=== PATIENT | male | born 1965 | race African-American/Black ===

== ENCOUNTER 2018-07-19 14:11 | Inpatient (IN) | payer OTHER ==
[2018-07-19 16:20] LABS: Absolute Lymphocytes (CBC) 2.1 K/uL (0.7-4.9); Basophils % 0.7 % (0-1.3); Eosinophils % 0.7 % (0-4.4); Hematocrit 39.1 % (39.6-49.0); Lymphocytes % 20.7 % (15.3-44.8); MPV 7.7 fL (7.6-11.3); Monocytes % 9.4 % (3.3-12.3)
[2018-07-19 16:25] LABS: Protime INR 1.03
[2018-07-19] MEDS ORDERED: MORPHINE 4 MG/ML SYR ONE ×2 (16:25→18:18)
[2018-07-19] MEDS ORDERED: ONDANSETRON 4 MG/2 ML VIAL ONE ×2 (16:25→18:18)
--- NOTE | 2018-07-19 16:34 | RAD REPORT ---
EXAM DESCRIPTION: RAD - Chest Single View - 07/19/2018 4:29 pm CLINICAL HISTORY: Shortness of breath, preop chest wound treatment COMPARISON: None. TECHNIQUE: AP portable chest image was obtained 1616 hours . FINDINGS: Lungs are clear. Heart and vasculature are normal. No measurable pleural effusion and no p neumothorax. No acute bony abnormality seen. No acute aortic findings suspected. IMPRESSION: No acute cardiopulmonary process.
[2018-07-19] MEDS ORDERED: NA CHLORIDE 0.9% 1,000 ML ONE (16:41)
--- NOTE | 2018-07-19 16:45 | RAD REPORT ---
EXAM DESCRIPTION: RAD - Foot Right 3 View - 07/19/2018 4:29 pm CLINICAL HISTORY: Foot pain, pressure ulcer, foot wound COMPARISON: None. FINDINGS: Extensive degenerative and postsurgical changes are present throughout the foot. Right fir st toe and distal first metatarsal have been resected along with the fourth and fifth toes and most o f the fourth and fifth metatarsals. The middle and distal phalanges of the second and third toes have also been resected. There is degenerative change in subluxation at the second and third MTP joints. Midfoot degenerative changes are present. Flattened plantar arch is seen. Significant degenerative ch geo at the tibiotalar joint space. Soft tissue edema is present. No air or foreign body in the soft tissues. No active bone destructive process seen. Osteomyelitis can be present prior to bone destruction. IMPRESSION: Patient has extensive degenerative and postsurgical changes to the foot. No active bone destructive process identifiable. Osteomyelitis can exist prior to radiographic bone destruction. Soft tissue edema is present with the baseline for the patient unknown. No air or foreign body.
[2018-07-19 17:02] LABS: ALT/SGPT 24 U/L (12-78); AST/SGOT 11 U/L (15-37); Albumin 2.6 g/dL (3.4-5.0); Alkaline Phosphatase 90 U/L (45-117); BUN Blood Urea Nitrogen 14 mg/dL (7-18); Bicarbonate 25 mmol/L (21-32); Bilirubin Direct < 0.1 mg/dL (0-0.2); Bilirubin Total 0.2 mg/dL (0.2-1.0); Creatine Phosphokinase 128 U/L (39-308); Glucose Level 236 mg/dL (74-106); Potassium 3.7 mmol/L (3.5-5.1); Protein, Total 7.7 g/dL (6.4-8.2); Sodium Level 138 mmol/L (136-145)
--- NOTE | 2018-07-19 17:30 | RAD REPORT ---
EXAM DESCRIPTION: US - Extremity Venous Uni Ltd - 07/19/2018 4:59 pm CLINICAL HISTORY: Right leg pain and swelling COMPARISON: None. TECHNIQUE: Real-time sonographic evaluation of the right lower extremity deep venous systems was per formed. FINDINGS: Normal compressibility, flow augmentation, phasic flow and spontaneous flow are identified in the right lower extremity common femoral, superficial femoral, popliteal and posterior tibial vei ns. No intraluminal filling defects seen. IMPRESSION: No DVT in the right lower extremity.
--- NOTE | 2018-07-19 18:09 | RAD REPORT ---
EXAM DESCRIPTION: CT - Spine Lumbar Wo Con - 07/19/2018 5:56 pm CLINICAL HISTORY: Back pain, radiculopathy COMPARISON: None. TECHNIQUE: Thin section axial imaging of the lumbar spine was performed. Sagittal and coronal recon struction images were generated and reviewed. All CT scans are performed using dose optimization technique as appropriate and may include automated exposure control or mA/KV adjustment according to patient size. FINDINGS: No acute compression fracture identifiable. Right lateral tilt of the lumbar spine may be positioning artifact. No AP alignment abnormality. Subcortical degenerative cystic changes are presen t abutting the endplates at L4-5. This is not seen as aggressive or pathologic in etiology. No pathol ogic bone process seen. No paraspinal soft tissue mass. T11-12: No herniation or disc bulge. No canal or significant foraminal encroachment. Facet and endpla te degenerative spurring present. T12-L1: No herniation or significant disc bulge. Facet degenerative change and endplate spurring. No canal or foramen stenosis. L1-2: No herniation or significant disc bulge. No canal or foramen significant stenosis. Facet and en dplate degenerative changes present. L2-3: Loss in disc height with degenerative disc disease evident. Bulging disc material is present mo re prominent into the right exit foramen where there is significant right foraminal stenosis. Central canal is borderline stenotic. Prominent facet degenerative changes are present. Prominent endplate s purring changes are present. L3-4: Disc bulge without herniation. Mild right foraminal stenosis. Facet degenerative change and end plate spurring noted. L4-5: Loss in disc height with very advanced degenerative change to the endplates. Bulging of disc ma terial across the central canal and into each exit foramen noted. No central spinal stenosis. Mild bi lateral foraminal stenosis seen. L5-S1 level. No herniation, disc bulge, canal stenosis or foraminal encroachment. Facet degenerative changes are present. No pars defects seen. IMPRESSION: Degenerative changes are present in the lumbar spine as detailed. Findings are most pron ounced at L4-5. No fracture or acute bone findings seen. Central spinal stenosis is not identified. Central canal detail is inherently limited. Canal is borde rline stenotic at L2-3.
--- NOTE | 2018-07-19 19:08 | ER ---
Nurse's Notes [facility] Name: Zoltan Alegre Jr Age: 53 yrs Sex: Male : 1965 Arrival Date: 07/19/2018 Time: 14:14 Bed 20 Private MD: Diagnosis: Cellulitis of right lower limb-Foot;Low back pain Presentation: 07/19 14:21 Presenting complaint: Patient states: my R leg is swollen and i have a wound on my R hj foot; wearing L leg prosthetic; denies fever and chills; denies SOB:. Transition of care: patient was not received from another setting of care. Onset of symptoms was July 19, 2018. Risk Assessment: Do you want to hurt yourself or someone else? Patient reports no desire to harm self or others. Initial Sepsis Screen: Does the patient meet any 2 criteria? No. Patient's initial sepsis screen is negative. Does the patient have a suspected source of infection? No. Patient's initial sepsis screen is negative. Care prior to arrival: None. 14:21 Method Of Arrival: Wheelchair 14:21 Acuity: MANISH 3 hj Triage Assessment: 14:27 General: Appears in no apparent distress. uncomfortable, Behavior is calm, cooperative, hj appropriate for age. Pain: Complains of pain in back and right leg. Musculoskeletal: Amputation of left leg. Historical: - Allergies: 14:26 No Known Allergies; hj - Home Meds: 14:26 glimeperide-metformin 2.5- 500 mg 3 x a day [Active]; gabapentin 300 mg oral cap 1 cap hj twice a day [Active]; pioglitazone 15 mg oral tab 1 tab once daily [Active]; ezetimibe oral oral 1 tab once daily [Active]; Plavix 75 mg Oral tab 1 tab once daily [Active]; atorvastatin 20 mg oral tab 1 tab once daily [Active]; tramadol 100 mg Oral BP25 1 cap once daily [Active]; Novolin N 100 unit/mL Sub-Q susp [Active]; Nifedipine Oral [Active]; Benicar oral oral [Active]; - PMHx: 14:26 Hyperlipidemia; Hypertension; Diabetes - NIDDM; hj - PSHx: 14:26 L leg amputation; hj - Immunization history:: Adult Immunizations up to date. - Social history:: Smoking status: Patient uses tobacco products, Patient uses alcohol. - Ebola Screening: : Patient negative for fever greater than or equal to 101.5 degrees Fahrenheit, and additional compatible Ebola Virus Disease symptoms Patient denies exposure to infectious person Patient denies travel to an Ebola-affected area in the 21 days before illness onset. Screenin:27 Abuse screen: Denies threats or abuse. Denies injuries from another. Nutritional hj screening: No deficits noted. Tuberculosis screening: No symptoms or risk factors identified. Fall Risk None identified. Assessment: 16:00 General: Appears in no apparent distress. comfortable, Behavior is calm, cooperative, em Reports feeling ill for 1-2 days, Denies fever. Pain: Complains of pain in back Pain radiates to right leg Pain currently is 6 out of 10 on a pain scale. Neuro: Level of Consciousness is awake, alert, obeys commands, Oriented to person, place, time, situation. Cardiovascular: Heart tones S1 S2 present Capillary refill < 3 seconds Patient's skin is warm and dry. Pulses are palpable in right dorsalis pedis artery. Respiratory: Airway is patent Respiratory effort is even, unlabored, Respiratory pattern is regular, symmetrical. GI: Abdomen is flat. Derm: Skin is pink, warm \T\ dry. Wound noted ball of right foot. Musculoskeletal: Amputation of left mcallister, anterior aspect of left ankle and dorsum of left foot. Range of motion: intact in all extremities, Swelling present in right leg. 17:10 Reassessment: Patient appears in no apparent distress at this time. Patient and/or em family updated on plan of care and expected duration. Pain level reassessed. Patient is alert, oriented x 3, equal unlabored respirations, skin warm/dry/pink. rates pain 4/10 Patient states feeling better. 18:00 Reassessment: pt reports pain after moving during CT, provider notified, new medication em orders received. 19:15 Reassessment: Patient appears in no apparent distress at this time. Patient and/or cc3 family updated on plan of care and expected duration. Pain level reassessed. Patient is alert, oriented x 3, equal unlabored respirations, skin warm/dry/pink. Received this male patient from morning shift [facility] as a case of back pain and foot ulcer for admission awaiting bed availability. With IV cannula gauge 20 at the right forearm saline locked. 20:30 Reassessment: Patient appears in no apparent distress at this time. Patient and/or cc3 family updated on plan of care and expected duration. Pain level reassessed. Patient is alert, oriented x 3, equal unlabored respirations, skin warm/dry/pink. Room available in 208, called med-surg for report but was told that they will call back. 20:50 Reassessment: Report called and handed over to RN Tyesha Vidal for continuity of cc3 care and management. 21:20 Reassessment: Patient appears in no apparent distress at this time. Patient and/or cc3 family updated on plan of care and expected duration. Pain level reassessed. Patient is alert, oriented x 3, equal unlabored respirations, skin warm/dry/pink. Patient left ER for admission vitally stable by stretcher escorted by [facility]. Vital Signs: 14:27 BP 161 / 90; Pulse 113; Resp 18; Temp 98.4(TE); Pulse Ox 98% on R/A; Weight 113.4 kg; hj Height 6 ft. 5 in. (195.58 cm); Pain 8/10; 16:00 BP 135 / 80; Pulse 106; Resp 20; Pulse Ox 100% on R/A; Pain 8/10; em 18:00 BP 155 / 94; Pulse 94; Resp 18; Pulse Ox 99% on R/A; Pain 8/10; em 19:15 BP 146 / 88; Pulse 89; Resp 19 S; Pulse Ox 99% on R/A; cc3 20:21 BP 159 / 86; Pulse 93; Resp 18 S; Pulse Ox 99% on R/A; cc3 21:00 BP 149 / 87; Pulse 91; Resp 20 S; Pulse Ox 99% on R/A; cc3 14:27 Body Mass Index 29.65 (113.40 kg, 195.58 cm) ED Course: 14:14 Patient arrived in ED. as 14:22 Triage completed. hj 14:27 Arm band placed on right wrist. hj 14:27 Patient has correct armband on for positive identification. Placed in gown. Bed in low hj position. Call light in reach. Side rails up X 1. 15:24 Cody Kendrick LVN is Primary Nurse. em 15:24 Karl Shelby PA is PHCP. cp 15:24 Gage Campbell MD is Attending Physician. cp 16:00 Initial lab(s) drawn, by nv, sent to lab. Inserted saline lock: 20 gauge in right em forearm, using aseptic technique. Blood collected. 16:29 Chest Single View XRAY In Process Unspecified. EDMS 16:29 XRAY Foot RIGHT 3 View In Process Unspecified. EDMS 16:32 EKG done, by emergency spill response technician. reviewed by Karl KYLE. sm3 16:59 US Extremity Venous Unilateral Ltd In Process Unspecified. EDMS 17:56 CT Lumbar Spine Wo Con: pain In Process Unspecified. EDMS 18:30 Dressings: Kerlix X 1; right foot. em 19:06 Guevara Cason DO is Hospitalizing Provider. cp 20:27 Primary Nurse role handed off by Cody Kendrick LVN ed1 20:50 No provider procedures requiring assistance completed. Patient admitted, IV remains in cc3 place. Administered Medications: 16:20 Drug: morphine 4 mg Route: IVP; Site: right forearm; hb 17:10 Follow up: Response: No adverse reaction; Pain is decreased em 16:20 Drug: Zofran 4 mg Route: IVP; Site: right forearm; hb 17:10 Follow up: Response: No adverse reaction em 16:34 Drug: NS 0.9% 1000 ml Route: IV; Rate: 1 bolus; Site: right forearm; em 18:13 Follow up: IV Status: Completed infusion; IV Intake: 1000ml em 18:15 Drug: Zofran 4 mg Route: IVP; Site: right forearm; em 19:15 Follow up: Response: No adverse reaction; Nausea is decreased cc3 18:15 Drug: morphine 4 mg Route: IVP; Site: right forearm; em 19:15 Follow up: Response: No adverse reaction; Pain is decreased cc3 19:15 Drug: vancoMYCIN 1 grams Route: IVPB; Infused Over: 2 hrs; Site: right forearm; cc3 21:15 Follow up: Response: No adverse reaction; IV Status: Completed infusion; IV Intake: cc3 250ml Intake: 18:13 IV: 1000ml; Total: 1000ml. em 21:15 IV: 250ml; Total: 1250ml. cc3 Outcome: 19:07 Decision to Hospitalize by Provider. cp 20:50 Admitted to Med/surg accompanied by sherry via stretcher, room 208, with chart, Report cc3 called to Tyesha Vidal RN 20:50 Condition: stable 20:50 Instructed on the need for admit, Demonstrated understanding of instructions. 21:23 Patient left the ED. cc3 Signatures: Dispatcher [employer] EDMS Cody Kendrick, WINDOW GLAZIER WINDOW GLAZIER Manisha Han Erika, RN RN ed1 Cholo Heaton RN RN hj Karl Shelby PA PA cp Baxter, Heather, ASHLEE RN Ofelia Minor sm3 Perlita Mejia cc3 Corrections: (The following items were deleted from the chart) 14:29 14:27 Pulse 113bpm; Resp 18bpm; Pulse Ox 98% RA; Temp 98.4F Temporal; 113.4 kg; Height hj 6 ft. 5 in.; BMI: 29.6; Pain 8/10; hj
--- NOTE | 2018-07-19 19:08 | EDPHYS ---
Physician Documentation [facility] Name: Zoltan Alegre Jr Age: 53 yrs Sex: Male : 1965 Arrival Date: 07/19/2018 Time: 14:14 Bed 20 Private MD: ED Physician Gage Campbell HPI: 07/19 15:50 This 53 yrs old Black Male presents to ER via Wheelchair with complaints of Back Pain, cp Foot Pain - Ulcer. 15:50 The patient presents with pressure ulcer. The complaints affect the ball of right foot. cp 15:50 Onset: The symptoms/episode began/occurred gradually. Associated signs and symptoms: cp Pertinent positives: swelling, of the right leg, Pertinent negatives fever. The patient presents with pain that is acute, with no known mechanism of injury. The symptoms are located in the low back. The pain does not radiate. Associated signs and symptoms: Pertinent negatives: abdominal pain, chest pain, constipation, dysuria, fever, incontinence, urinary retention, weakness. The problem was sustained from unknown cause. Severity of symptoms: in the emergency department the symptoms are unchanged, despite home interventions. Patient reports he was referred to ED by DR Field for pressure ulcer wound of right foot. Historical: - Allergies: 14:26 No Known Allergies; hj - Home Meds: 14:26 glimeperide-metformin 2.5- 500 mg 3 x a day [Active]; gabapentin 300 mg oral cap 1 cap hj twice a day [Active]; pioglitazone 15 mg oral tab 1 tab once daily [Active]; ezetimibe oral oral 1 tab once daily [Active]; Plavix 75 mg Oral tab 1 tab once daily [Active]; atorvastatin 20 mg oral tab 1 tab once daily [Active]; tramadol 100 mg Oral BP25 1 cap once daily [Active]; Novolin N 100 unit/mL Sub-Q susp [Active]; Nifedipine Oral [Active]; Benicar oral oral [Active]; - PMHx: 14:26 Hyperlipidemia; Hypertension; Diabetes - NIDDM; hj - PSHx: 14:26 L leg amputation; hj - Immunization history:: Adult Immunizations up to date. - Social history:: Smoking status: Patient uses tobacco products, Patient uses alcohol. - Ebola Screening: : Patient negative for fever greater than or equal to 101.5 degrees Fahrenheit, and additional compatible Ebola Virus Disease symptoms Patient denies exposure to infectious person Patient denies travel to an Ebola-affected area in the 21 days before illness onset. ROS: 16:00 Constitutional: Negative for fever. cp 16:00 All other systems are negative. cp Exam: 16:10 Constitutional: The patient appears in no acute distress, alert, awake, cp non-diaphoretic, non-toxic, well developed, well nourished. 16:10 Head/Face: Normocephalic, atraumatic. Eyes: Pupils equal round and reactive to light, cp extra-ocular motions intact. Lids and lashes normal. Conjunctiva and sclera are non-icteric and not injected. Cornea within normal limits. Periorbital areas with no swelling, redness, or edema. ENT: Nares patent. No nasal discharge, no septal abnormalities noted. Tympanic membranes are normal and external auditory canals are clear. Oropharynx with no redness, swelling, or masses, exudates, or evidence of obstruction, uvula midline. Mucous membranes moist. Neck: Trachea midline, no thyromegaly or masses palpated, and no cervical lymphadenopathy. Supple, full range of motion without nuchal rigidity, or vertebral point tenderness. No Meningismus. Chest/axilla: Normal chest wall appearance and motion. Nontender with no deformity. No lesions are appreciated. 16:10 Cardiovascular: Rate: tachycardic, Rhythm: regular, Pulses: Pulses are 1+ in right dorsalis pedis artery. Edema: moderate noted to right lower leg and foot, JVD: is not appreciated. 16:10 Respiratory: the patient does not display signs of respiratory distress, Respirations: normal, no use of accessory muscles, no retractions, no splinting, no tachypnea, labored breathing, is not present, Breath sounds: are clear throughout, no decreased breath sounds, no stridor, no wheezing. 16:10 Abdomen/GI: Inspection: abdomen appears normal, Palpation: abdomen is soft and non-tender, in all quadrants. 16:10 Back: pain, that is moderate, of the lumbar area, ROM is painful, with all movement, CVA tenderness, is absent, vertebral tenderness, is appreciated at L3, L4 and L5. 16:10 Musculoskeletal/extremity: Extremities: grossly normal except: noted in the right foot: deformity, pressure ulcer on plantar surface with erythema and swelling, scant drainage noted, left BKA. 16:10 Skin: right groin enlarged lymph node. 16:10 Neuro: Orientation: to person, place \T\ time. Mentation: is normal, Cerebellar function: is grossly normal, Motor: is normal, Sensation: light touch is decreased in the right foot. 16:35 ECG was reviewed by the Attending Physician. Vital Signs: 14:27 BP 161 / 90; Pulse 113; Resp 18; Temp 98.4(TE); Pulse Ox 98% on R/A; Weight 113.4 kg; hj Height 6 ft. 5 in. (195.58 cm); Pain 8/10; 16:00 BP 135 / 80; Pulse 106; Resp 20; Pulse Ox 100% on R/A; Pain 8/10; em 18:00 BP 155 / 94; Pulse 94; Resp 18; Pulse Ox 99% on R/A; Pain 8/10; em 19:15 BP 146 / 88; Pulse 89; Resp 19 S; Pulse Ox 99% on R/A; cc3 20:21 BP 159 / 86; Pulse 93; Resp 18 S; Pulse Ox 99% on R/A; cc3 21:00 BP 149 / 87; Pulse 91; Resp 20 S; Pulse Ox 99% on R/A; cc3 14:27 Body Mass Index 29.65 (113.40 kg, 195.58 cm) hj MDM: 15:27 Patient medically screened. cp 18:31 Physician consultation: Guevara Cason DO was called at 18:31, was contacted at 18:31, regarding consult, patient's condition, and will see patient in ED, shortly. 19:05 Physician consultation: Guevara Cason DO in the emergency department to see patient at cp 18:40, will admit for IV antibiotics. 07/19 15:55 Order name: C-Reactive Protein; Complete Time: 17:17 07/19 17:17 Interpretation: Abnormal: C-REACTIVE PROT 24.90. 07/19 15:55 Order name: Sed Rate; Complete Time: 17:17 cp 07/19 17:17 Interpretation: Abnormal: SED 76. cp 07/19 15:55 Order name: Wound Culture cp 07/19 15:55 Order name: Urine Culture cp 07/19 15:55 Order name: Urine Microscopic Only cp 04/05 15:55 Order name: Basic Metabolic Panel; Complete Time: 17:17 cp 04/05 18:29 Interpretation: Normal except: GLUC 236. cp 04/05 15:55 Order name: Blood Culture Adult (2) cp 04/05 15:55 Order name: CBC with Diff; Complete Time: 17:17 cp 04/05 17:17 Interpretation: Normal except: RBC 4.30; HGB 13.2; HCT 39.1. cp 04/05 15:55 Order name: CPK; Complete Time: 17:17 cp 04/05 15:55 Order name: Lactate; Complete Time: 17:17 cp 04/05 15:55 Order name: LFT's; Complete Time: 17:17 cp 04/ 15:55 Order name: Procalcitonin; Complete Time: 17:17 cp 04 15:55 Order name: Protime (+inr); Complete Time: 17:17 cp 04 15:55 Order name: Ptt, Activated; Complete Time: 17:17 cp 04 15:55 Order name: US Extremity Venous Unilateral Ltd; Complete Time: 18:28 cp 04 15:55 Order name: Chest Single View XRAY; Complete Time: 17:17 cp 04 15:55 Order name: Accucheck; Complete Time: 16:20 cp 0405 15:55 Order name: Cardiac monitoring; Complete Time: 16:21 cp 05 15:55 Order name: EKG - Nurse/Tech; Complete Time: 16:20 cp 0405 15:55 Order name: IV Saline Lock - Large Bore; Complete Time: 16:21 cp 0405 15:55 Order name: XRAY Foot RIGHT 3 View; Complete Time: 17:17 cp 0405 17:19 Order name: CT Lumbar Spine Wo Con: pain; Complete Time: 18:28 cp 05 17:59 Order name: EKG Electrocardiogram EDMS 07/19 19:54 Order name: Urine Dipstick--Ancillary (enter results) cm6 07/19 15:55 Order name: Labs collected and sent; Complete Time: 16:21 cp 0405 15:55 Order name: O2 Per Protocol; Complete Time: 16:21 cp 07/19 15:55 Order name: O2 Sat Monitoring; Complete Time: 16:21 cp 07/19 15:55 Order name: Urine Dipstick-Ancillary (obtain specimen); Complete Time: 20:12 cp EC:35 Rate is 103 beats/min. Rhythm is regular. ME interval is normal. QRS interval is cp normal. QT interval is normal. Interpreted by me. Reviewed by me. Administered Medications: 16:20 Drug: morphine 4 mg Route: IVP; Site: right forearm; hb 17:10 Follow up: Response: No adverse reaction; Pain is decreased em 16:20 Drug: Zofran 4 mg Route: IVP; Site: right forearm; hb 17:10 Follow up: Response: No adverse reaction em 16:34 Drug: NS 0.9% 1000 ml Route: IV; Rate: 1 bolus; Site: right forearm; em 18:13 Follow up: IV Status: Completed infusion; IV Intake: 1000ml em 18:15 Drug: Zofran 4 mg Route: IVP; Site: right forearm; em 19:15 Follow up: Response: No adverse reaction; Nausea is decreased cc3 18:15 Drug: morphine 4 mg Route: IVP; Site: right forearm; em 19:15 Follow up: Response: No adverse reaction; Pain is decreased cc3 19:15 Drug: vancoMYCIN 1 grams Route: IVPB; Infused Over: 2 hrs; Site: right forearm; cc3 21:15 Follow up: Response: No adverse reaction; IV Status: Completed infusion; IV Intake: cc3 250ml Disposition: 07/19/18 19:07 Hospitalization ordered by Guevara Cason for Inpatient Admission. Preliminary diagnosis are Cellulitis of right lower limb - Foot, Low back pain. - Bed requested for Telemetry/MedSurg (Inpatient). - Status is Inpatient Admission. cc3 - Condition is Stable. - Problem is an ongoing problem. - Symptoms have improved. UTI on Admission? No Addendum: 07/22/2018 07:26 Co-signature as Attending Physician, Gage Campbell MD I agree with the assessment and k dr plan of care. Signatures: Dispatcher [employer] Gage Perez MD MD kdr Munoz, Edgar, ANODE CREW SUPERVISOR ANODE CREW SUPERVISOR em Cholo Heaton RN RN hj Karl Shelby PA PA Lashae Friedman RN RN Sowmya Junior RN RN Perlita Mejia cc3 Corrections: (The following items were deleted from the chart) 07/19 20:25 19:07 Hospitalization Ordered by Guevara Cason DO for Inpatient Admission. Preliminary cg diagnosis is Cellulitis of right lower limb - Foot; Low back pain. Bed requested for Telemetry/MedSurg (Inpatient). Status is Inpatient Admission. Condition is Stable. Problem is an ongoing problem. Symptoms have improved. UTI on Admission? No. cp 21:23 20:25 07/19/2018 19:07 Hospitalization Ordered by Guevara Cason DO for Inpatient cc3 Admission. Preliminary diagnosis is Cellulitis of right lower limb - Foot; Low back pain. Bed requested for Telemetry/MedSurg (Inpatient). Status is Inpatient Admission. Condition is Stable. Problem is an ongoing problem. Symptoms have improved. UTI on Admission? No. cg
[2018-07-19] MEDS ORDERED: NA CHLORIDE 0.9% 250 ML ONE ×2 (19:24→23:33)
[2018-07-19] MEDS ORDERED: VANCOMYCIN 1 GM/VIAL ONE ×2 (19:24→23:31)
--- NOTE | 2018-07-19 20:23 | P.HP ---
Certification for Inpatient Patient admitted to: Inpatient With expected LOS: >2 Midnights Practitioner: I am a practitioner with admitting privileges, knowledge of patient current condition, hospital course, and medical plan of care. Services: Services provided to patient in accordance with Admission requirements found in Title 42 Section 412.3 of the Code of Federal Regulations Patient History Date of Service: 07/19/18 Reason for admission: diabetic foot ulcer infection History of Present Illness: Mr Alegre is a 53 years old male with history of DM II, HTN, dyslipidemia, tobacco abuse, left BKA, partial right foot amputation, who has 2 chronic diabetic foot ulcers on the bottom of his right foot, followed up by Dr Field every 2 weeks. However, for the last month, he was not able to see Dr Field due to transportations issues. About 1 week ago, he noticed that his both ulcers, expanded and start having yellowish secretion. His foot is significant more swollen than before. He denied pain, fever or chills. Lab work in ER shows normal WBC count with normal Lactate and procalcitonin. XR foot shows significant soft tissue swelling with no definite signs of osteomyelitis. The patient was also complaining of back pain, which is chronic. CT lumbar spine shows multiple vertebral level with DJD at different levels with borderline central canal stenosis at L2-3. Allergies No Known Allergies Allergy (Unverified 07/19/18 19:47) Home medications list reviewed: Yes - Past Medical/Surgical History -: Diabetes mellitus II -: HTN -: dyslipidemia -: left BKA - Family History Family History: Reviewed- Non-Contributory - Social History Smoking Status: Current every day smoker Counseled patient to stop smoking for: less than 10 minutes Smoking therapy provided: Yes Patient receptive to therapy: No CD- Drugs: No Place of Residence: Home Review of Systems 10-point ROS is otherwise unremarkable Physical Examination - Physical Exam General: Alert, In no apparent distress HEENT: Atraumatic, PERRLA, Mucous membr. moist/pink, EOMI, Sclerae nonicteric Neck: Supple, 2+ carotid pulse no bruit, No LAD, Without JVD or thyroid abnormality Respiratory: Clear to auscultation bilaterally, Normal air movement Cardiovascular: Regular rate/rhythm, Normal S1 S2 Gastrointestinal: Normal bowel sounds, No tenderness Musculoskeletal: No tenderness, Other (left BKA) Integumentary: Diabetic ulcer (2 open wounds on the bottom of his right foot.) Neurological: Normal speech, Normal strength at 5/5 x4 extr, Normal tone, Normal affect Lymphatics: No axilla or inguinal lymphadenopathy - Studies Laboratory Data (last 24 hrs) 07/19/18 16:00: PT 12.1, INR 1.03, APTT 47.1 H 07/19/18 16:00: WBC 10.2, Hgb 13.2 L, Hct 39.1 L, Plt Count 318 07/19/18 16:00: Sodium 138, Potassium 3.7, BUN 14, Creatinine 0.88, Glucose 236 H, Total Bilirubin 0.2, AST 11 L, ALT 24, Alkaline Phosphatase 90 Assessment and Plan - Problems (Diagnosis) (1) Diabetic foot ulcer Current Visit: Yes Status: Acute Qualifiers: Diabetic foot ulcer location: midfoot Diabetes mellitus type: type 2 Laterality: right Non-pressure ulcer stage: with necrosis of muscle Qualified Code(s): E11.621 - Type 2 diabetes mellitus with foot ulcer; L97.413 - Non-pressure chronic ulcer of right heel and midfoot with necrosis of muscle (2) Diabetes mellitus Current Visit: Yes Status: Acute Qualifiers: Diabetes mellitus type: type 2 Diabetes mellitus residential insulin use: without multigrapher use Diabetes mellitus complication status: with skin complications Diabetes mellitus complication detail: with foot ulcer Qualified Code(s): E11.621 - Type 2 diabetes mellitus with foot ulcer; L97.509 - Non-pressure chronic ulcer of other part of unspecified foot with unspecified severity (3) Dyslipidemia Current Visit: Yes Status: Acute (4) Tobacco abuse Current Visit: Yes Status: Acute (5) HTN (hypertension) Current Visit: Yes Status: Acute Qualifiers: Hypertension type: essential hypertension Qualified Code(s): I10 - Essential (primary) hypertension - Plan The patient will be admitted to the hospital due to worsening diabetic foot ulcer. No signs of systemic infection. However, due to his local worsening wound status, will start empiric antibiotic treatment. Consult Dr Field, and wound care team. Cultures in process. - Advance Directives Does patient have a Living Will: No Does patient have a Durable POA for Healthcare: No - Code Status/Comfort Care Code Status Assessed: Yes Code Status: Full Code
[2018-07-19] MEDS ORDERED: ONDANSETRON 4 MG/2 ML VIAL IV PRN (21:30)
[2018-07-19] MEDS ORDERED: ACETAMINOPHEN 500 MG TAB PO PRN (21:30)
[2018-07-19 21:35] LABS: Calcium Oxalate Crystals- Ur MODERATE (NONE SEEN); Urine Bacteria <20 /HPF (NONE SEEN); Urine Culture Reflex Order NOT NEEDED; Urine RBC <5 /HPF (NONE SEEN)
[2018-07-19 21:36] LABS: Urine Blood 2+ (NEG); Urine Glucose 2+ (NEG); Urine Protein 3+ (NEG); Urine pH 5.5 (5.0-7.0)
[2018-07-19] MEDS ORDERED: VANCOMYCIN 750 MG in NA CHLORIDE 0.9% 250 ML IVPB ONE ×4 (23:15)
[2018-07-19] MEDS: NA CHLORIDE 0.9% 1,000 ML IV SCH (23:30)
[2018-07-19] MEDS ORDERED: PIPERACIL/TAZO 3.375 GM VIAL IV ONE (23:31)
[2018-07-19] MEDS: INSULIN -REGULAR HUMAN 50 UNIT/0.5 ML ML SQ SCH (23:31)
[2018-07-19] MEDS ORDERED: NA CHLORIDE 0.9% 100 ML ONE (23:32)
[2018-07-19] MEDS: TRAMADOL HCL 50 MG TAB PO PRN (23:38)
[2018-07-20] MEDS: PIPER/TAZO/NS 3.375gm 3.375 GM/100 ML BAG IVPB SCH ×2 (00:46→05:18)
[2018-07-20] MEDS ORDERED: NA CHLORIDE 0.9% 100 ML ONE (04:15)
[2018-07-20] MEDS: NICOTINE 21 MG/PAT TD SCH (05:18)
[2018-07-20] MEDS: TRAMADOL HCL 50 MG TAB PO PRN ×3 (05:19→17:30)
[2018-07-20 06:20] LABS: Absolute Lymphocytes (CBC) 2.3 K/uL (0.7-4.9); Absolute Monocytes 0.8 K/uL (0.1-1.3); Absolute Neutrophil 5.1 K/uL (1.8-8.0); Basophils % 0.6 % (0-1.3); Eosinophils % 0.8 % (0-4.4); Hematocrit 36.8 % (39.6-49.0); Lymphocytes % 27.5 % (15.3-44.8); MPV 7.4 fL (7.6-11.3); Monocytes % 9.2 % (3.3-12.3)
[2018-07-20 06:39] LABS: BUN Blood Urea Nitrogen 11 mg/dL (7-18); Bicarbonate 25 mmol/L (21-32); Glucose Level 192 mg/dL (74-106); Potassium 3.8 mmol/L (3.5-5.1); Sodium Level 139 mmol/L (136-145)
[2018-07-20] MEDS: INSULIN -REGULAR HUMAN 50 UNIT/0.5 ML ML SQ SCH ×4 (07:30→21:13)
[2018-07-20] MEDS: NA CHLORIDE 0.9% 1,000 ML IV SCH (07:30)
[2018-07-20] MEDS: GABAPENTIN 300 MG CAP PO SCH ×3 (08:41→21:12)
[2018-07-20] MEDS: EZETIMIBE 10 MG TAB PO SCH (08:42)
[2018-07-20] MEDS: ASPIRIN EC 81 MG TAB PO SCH (08:42)
[2018-07-20] MEDS: VALSARTAN 80 MG TAB PO SCH (08:42)
[2018-07-20] MEDS: NIFEDIPINE XL 90 MG TABLET PO SCH (08:42)
[2018-07-20] MEDS: CLOPIDOGREL 75 MG TABLET PO SCH (08:43)
[2018-07-20] MEDS ORDERED: CEFEPIME 1 GM/VIAL IV SCH (09:00)
[2018-07-20] MEDS ORDERED: NIFEDIPINE XL 90 MG TABLET PO SCH (09:00)
[2018-07-20] MEDS ORDERED: KCL 20 MEQ/100 mL IVPB 20 MEQ/100 ML BAG IV SCH (09:00)
[2018-07-20] MEDS ORDERED: VANCOMYCIN 1 GM in NA CHLORIDE 0.9% 500 ML IVPB SCH (09:00)
--- NOTE | 2018-07-20 09:03 | P.PN ---
Subjective Date of Service: 07/20/18 Primary Care Provider: Dr. Fernandes([place]); Podiatry-Dr. Field Chief Complaint: diabetic foot ulcer infection Subjective: Doing well Physical Examination - Vital Signs Temperature: 97.6 F Blood Pressure: 156/89 Pulse: 88 Respirations: 14 Pulse Ox (%): 98 - Physical Exam General: Alert, In no apparent distress, Oriented x3, Cooperative HEENT: Atraumatic Neck: Supple Respiratory: Clear to auscultation bilaterally, Normal air movement Cardiovascular: Normal pulses, Regular rate/rhythm Gastrointestinal: Normal bowel sounds, Soft and benign, Non-distended Integumentary: Other (Erythema and swelling to the right lower extremity improved. 2 ulcers to the foot noted. History of left BKA) Neurological: Normal speech, Normal strength at 5/5 x4 extr, Normal tone, Normal affect - Studies Laboratory Data (last 24 hrs) 07/19/18 16:00: PT 12.1, INR 1.03, APTT 47.1 H 07/19/18 16:00: WBC 10.2, Hgb 13.2 L, Hct 39.1 L, Plt Count 318 07/19/18 16:00: Sodium 138, Potassium 3.7, BUN 14, Creatinine 0.88, Glucose 236 H, Total Bilirubin 0.2, AST 11 L, ALT 24, Alkaline Phosphatase 90 Medications List Reviewed: Yes Assessment & Plan Discharge Plan: Home Plan to discharge in: 48 Hours Physician Review Additional Text: Impression: Right lower extremity cellulitis with diabetic foot ulcers, suspect osteomyelitis, complicated with Charcot arthropathy Diabetes mellitus type 2, insulin dependent Hypertension Hyperlipidemia Tobacco abuse Peripheral vascular disease History left BKA Plan: Right lower extremity cellulitis with diabetic foot ulcers, suspect osteomyelitis, complicated with Charcot arthropathy: Continue IV antibiotic therapy. Will adjust medication to continue vancomycin and cefepime. Will have pharmacy monitor and adjust closely. Will obtain arterial Doppler to evaluate for PVD. Will obtain MRI of foot to rule out osteomyelitis. Will discuss case with his setter off. If the MRI negative anticipate discharge on Sunday with oral antibiotics. If MRI positive then the patient will require PICC line with long-term IV antibiotic therapy. If he requires long-term IV antibiotic therapy he prefers to do this at home. Continue DVT prophylaxis. Will provide medication for pain. Continue to monitor and adjust appropriately. Diabetes mellitus type 2, insulin dependent: Will check A1c. Continue basal insulin. Will monitor and adjust appropriately. Hypertension: Restart home medication. Will monitor and adjust appropriately. Hyperlipidemia: Restart home medication. Tobacco abuse: Continue to address tobacco cessation. Will provide nicotine patch if needed. Peripheral vascular disease: Suspect peripheral vascular disease. Will obtain Arterial Doppler to further evaluate. History left BKA: Will have physical therapy ambulate. Patient has prosthesis. Time Spent Managing Pts Care (In Minutes): 55
[2018-07-20] MEDS: VANCOMYCIN 1.75 GM in NA CHLORIDE 0.9% 500 ML IVPB SCH ×2 (10:26→21:12)
[2018-07-20] MEDS: CEFEPIME/SWI 1gm 10 ML IV SCH ×2 (10:26→21:12)
[2018-07-20] MEDS ORDERED: PIPER/TAZO/NS 3.375gm 3.375 GM/100 ML BAG IVPB SCH (14:00)
[2018-07-20] MEDS: ENOXAPARIN 40 MG/0.4 ML SQ SCH (17:16)
--- NOTE | 2018-07-20 21:03 | RAD REPORT ---
EXAM DESCRIPTION: US - Lower Extremity Arterial Bilat - 07/20/2018 8:14 pm CLINICAL HISTORY: Peripheral vascular disease COMPARISON: None. TECHNIQUE: Waveforms and velocity were obtained along the length of each lower extremity. Visual ins pection of the lower extremity arterial tree performed. FINDINGS: Calcifications are identified in the lower extremity arterial tree. No focal flow restrict ing lesion or occlusion. Triphasic waveform pattern seen in the right common femoral and superficial femoral artery is with fo cely plaquing changes seen. Popliteal artery to dorsalis pedis artery shows a biphasic waveform patter n. Triphasic waveform pattern seen in the left common femoral, superficial femoral and popliteal Patient is a below-knee amputee. No suspicious velocity value. IMPRESSION: Bilateral lower extremity peripheral arterial disease is present mild in degree. No occl usion or flow restricting lesion.
[2018-07-20] MEDS: ATORVASTATIN 20 MG TAB PO SCH (21:12)
[2018-07-20] MEDS: NPH (HUMAN) 100 UNITS/ML INSULIN SQ SCH (21:13)
[2018-07-21] MEDS: TRAMADOL HCL 50 MG TAB PO PRN ×2 (04:23→13:19)
[2018-07-21 05:13] LABS: Absolute Lymphocytes (CBC) 1.5 K/uL (0.7-4.9); Absolute Monocytes 0.5 K/uL (0.1-1.3); Absolute Neutrophil 3.7 K/uL (1.8-8.0); Basophils % 0.6 % (0-1.3); Eosinophils % 1.1 % (0-4.4); Hematocrit 36.2 % (39.6-49.0); Lymphocytes % 26.1 % (15.3-44.8); MPV 7.4 fL (7.6-11.3); Monocytes % 9.1 % (3.3-12.3); RBC Red Blood Cell Count 3.94 M/uL (4.33-5.43)
[2018-07-21 05:40] LABS: BUN Blood Urea Nitrogen 7 mg/dL (7-18); Bicarbonate 27 mmol/L (21-32); Glucose Level 90 mg/dL (74-106); HDL Cholesterol 48 mg/dL (40-60); LDL Cholesterol, Calculated 29 (<130); Potassium 3.8 mmol/L (3.5-5.1); Sodium Level 139 mmol/L (136-145)
[2018-07-21] MEDS: INSULIN -REGULAR HUMAN 50 UNIT/0.5 ML ML SQ SCH ×4 (07:30→21:21)
[2018-07-21] MEDS: VANCOMYCIN 1.75 GM in NA CHLORIDE 0.9% 500 ML IVPB SCH (08:49)
[2018-07-21] MEDS: EZETIMIBE 10 MG TAB PO SCH (08:51)
[2018-07-21] MEDS: CEFEPIME/SWI 1gm 10 ML IV SCH ×2 (08:51→21:20)
[2018-07-21] MEDS: ASPIRIN EC 81 MG TAB PO SCH (08:51)
[2018-07-21] MEDS: GABAPENTIN 300 MG CAP PO SCH ×3 (08:51→21:21)
[2018-07-21] MEDS: NICOTINE 21 MG/PAT TD SCH (08:52)
[2018-07-21] MEDS: VALSARTAN 80 MG TAB PO SCH (08:52)
[2018-07-21] MEDS: CLOPIDOGREL 75 MG TABLET PO SCH (08:52)
[2018-07-21] MEDS: NIFEDIPINE XL 90 MG TABLET PO SCH (08:53)
[2018-07-21] MEDS ORDERED: POTASSIUM CL SA 10 MEQ TAB PO ONE (09:00)
--- NOTE | 2018-07-21 09:02 | P.PN ---
Subjective Date of Service: 07/21/18 Primary Care Provider: Dr. Fernandes([place]); Podiatry-Dr. Field Chief Complaint: diabetic foot ulcer infection Subjective: Improving Physical Examination - Vital Signs Temperature: 97.2 F Blood Pressure: 144/88 Pulse: 84 Respirations: 20 Pulse Ox (%): 99 - Physical Exam General: Alert, In no apparent distress, Oriented x3, Cooperative HEENT: Atraumatic Neck: Supple Respiratory: Clear to auscultation bilaterally, Normal air movement Cardiovascular: Normal pulses, Regular rate/rhythm Gastrointestinal: Normal bowel sounds, Soft and benign, Non-distended, No masses , No rebound, No guarding Integumentary: Other (Right lower extremity shows improvement. Swelling improved. Foot bandaged. No significant erythema or warmth to the ankle area.) Neurological: Normal speech, Normal strength at 5/5 x4 extr, Normal tone, Normal affect - Studies Microbiology Data (last 24 hrs): 07/19/18 16:00 Wound - Right Foot Gram Stain - Final Medications List Reviewed: Yes Assessment & Plan Discharge Plan: Home Plan to discharge in: 24 Hours Physician Review Additional Text: Impression: Right lower extremity cellulitis with diabetic foot ulcers, suspect osteomyelitis, complicated with Charcot arthropathy Diabetes mellitus type 2, insulin dependent Hypertension Hyperlipidemia Tobacco abuse Peripheral vascular disease History left BKA Plan: Right lower extremity cellulitis with diabetic foot ulcers, suspect osteomyelitis, complicated with Charcot arthropathy: Swelling to the right lower extremity improved. Continue IV antibiotic therapy-vancomycin and cefepime. Pharmacy to monitor and adjust appropriately. Arterial Doppler shows mild PVD. Case discussed with his ticket printer and tagger yesterday. He will come to evaluate ulcers and foot tomorrow. Await MRI tomorrow to rule out osteomyelitis. If the MRI negative anticipate discharge on Sunday with oral antibiotics. If MRI positive then the patient will require PICC line with long- term IV antibiotic therapy. If he requires long-term IV antibiotic therapy he prefers to do this at home. Continue DVT prophylaxis. Will provide medication for pain. Continue to monitor and adjust appropriately. I will turn the service over to the hospitalist team tomorrow. I will go over the plan of care with them. Diabetes mellitus type 2, insulin dependent: Will check A1c. Continue basal insulin. Will monitor and adjust appropriately. Hypertension: Continue with medication. Will monitor and adjust appropriately. Hyperlipidemia: Continue with medication. Tobacco abuse: Continue to address tobacco cessation. Will provide nicotine patch if needed. Peripheral vascular disease: Mild disease noted. No significant stenosis noted. Continue with aspirin. Continue with tobacco cessation education. History left BKA: Will have physical therapy ambulate. Patient has prosthesis. Time Spent Managing Pts Care (In Minutes): 55
[2018-07-21] MEDS ORDERED: GLUCAGON 1 MG/VIAL IM PRN (11:41)
[2018-07-21] MEDS ORDERED: D50W 25 GM/50 ML SYRINGE IV PRN (11:41)
[2018-07-21] MEDS: ENOXAPARIN 40 MG/0.4 ML SQ SCH (16:37)
[2018-07-21] MEDS: NPH (HUMAN) 100 UNITS/ML INSULIN SQ SCH (21:20)
[2018-07-21] MEDS: VANCOMYCIN 2 GM in NA CHLORIDE 0.9% 500 ML IVPB SCH (21:20)
[2018-07-21] MEDS: ATORVASTATIN 20 MG TAB PO SCH (21:21)
[2018-07-22 06:23] LABS: Absolute Lymphocytes (CBC) 1.6 K/uL (0.7-4.9); Absolute Monocytes 0.5 K/uL (0.1-1.3); Absolute Neutrophil 3.5 K/uL (1.8-8.0); Basophils % 0.8 % (0-1.3); Eosinophils % 0.7 % (0-4.4); Hematocrit 39.8 % (39.6-49.0); Lymphocytes % 27.9 % (15.3-44.8); MPV 7.6 fL (7.6-11.3); Monocytes % 8.8 % (3.3-12.3); RBC Red Blood Cell Count 4.39 M/uL (4.33-5.43)
[2018-07-22 06:37] LABS: BUN Blood Urea Nitrogen 8 mg/dL (7-18); Bicarbonate 28 mmol/L (21-32); Glucose Level 80 mg/dL (74-106); Magnesium 2.1 mg/dL (1.8-2.4); Potassium 3.8 mmol/L (3.5-5.1); Sodium Level 140 mmol/L (136-145)
[2018-07-22] MEDS: INSULIN -REGULAR HUMAN 50 UNIT/0.5 ML ML SQ SCH ×4 (07:30→20:33)
[2018-07-22] MEDS ORDERED: POTASSIUM 25 MEQ EFFERV TAB PO ONE (09:00)
[2018-07-22] MEDS: VANCOMYCIN 2 GM in NA CHLORIDE 0.9% 500 ML IVPB SCH (09:07)
[2018-07-22] MEDS: CEFEPIME/SWI 1gm 10 ML IV SCH (09:07)
[2018-07-22] MEDS: NICOTINE 21 MG/PAT TD SCH (09:08)
[2018-07-22] MEDS: ASPIRIN EC 81 MG TAB PO SCH (09:08)
[2018-07-22] MEDS: EZETIMIBE 10 MG TAB PO SCH (09:08)
[2018-07-22] MEDS: GABAPENTIN 300 MG CAP PO SCH ×3 (09:08→20:33)
[2018-07-22] MEDS: CLOPIDOGREL 75 MG TABLET PO SCH (09:08)
[2018-07-22] MEDS: NIFEDIPINE XL 90 MG TABLET PO SCH (09:09)
[2018-07-22] MEDS: VALSARTAN 80 MG TAB PO SCH (09:09)
[2018-07-22] MEDS: TRAMADOL HCL 50 MG TAB PO PRN ×2 (09:10→20:37)
--- NOTE | 2018-07-22 11:27 | RAD REPORT ---
EXAM DESCRIPTION: MRI - Foot Right Wo Cont - 07/22/2018 11:11 am CLINICAL HISTORY: Evaluate for osteomyelitis Soft tissue wound anterior plantar aspect of the foot. COMPARISON: Foot Right 3 View dated 07/19/2018 FINDINGS: Evidence of prior amputation at the level of the first metatarsal midshaft. Previous parti al amputation of second and third toes. Amputation at the level of the proximal fourth and fifth meta tarsals present. Soft tissue ulceration is seen along the plantar aspect of the forefoot along the medial aspect. The poorly defined soft tissue in this region measures up to 14 mm in thickness. Residual sesamoid bone as well as bone in the region of the stump of the first metatarsal remnant kelsie ws abnormal diminished T1 signal an elevated T2/IR signal. This is compatible with mild osteomyelitis . No fluid collection is seen to indicate abscess. IMPRESSION: Mild osteomyelitis of the residual first metatarsal stump and adjacent sesamoid bone is seen deep to the marked abnormal soft tissues along the plantar forefoot.
--- NOTE | 2018-07-22 15:01 | P.PN ---
Subjective Date of Service: 07/22/18 Primary Care Provider: Dr. Fernandes([place]); Podiatry-Dr. Field Chief Complaint: diabetic foot ulcer infection Patient seen and examined at bedside with RN. Chart reviewed. Denies having fever, Chills, SOB and CP. MRI of the foot + for osteomyelitis. Pt voices that he wants to go home today. Educated on need IV abx Review of Systems 10-point ROS is otherwise unremarkable Physical Examination - Vital Signs Temperature: 97.2 F Blood Pressure: 160/82 Pulse: 93 Respirations: 15 Pulse Ox (%): 96 - Physical Exam General: Alert, In no apparent distress HEENT: Atraumatic, PERRLA, EOMI Neck: Supple, JVD not distended Respiratory: Clear to auscultation bilaterally, Normal air movement Cardiovascular: Regular rate/rhythm, Normal S1 S2 Gastrointestinal: Normal bowel sounds, No tenderness Musculoskeletal: No tenderness Integumentary: Tenderness/swelling, Erythema, Other (RLE wrapped in kurlex) Neurological: Normal speech, Normal tone, Normal affect Lymphatics: No axilla or inguinal lymphadenopathy - Studies Microbiology Data (last 24 hrs): 07/19/18 19:45 Clean Catch Urine [place] Count - Final <10,000 CFU/ML. 07/19/18 19:45 Clean Catch Urine - Final 07/19/18 16:00 Wound - Right Foot Gram Stain - Final 07/19/18 16:00 Wound - Right Foot Culture & Sensitivity - Final Proteus Mirabilis Medications List Reviewed: Yes Assessment And Plan - Current Problems (Diagnosis) (1) Osteomyelitis of right lower extremity Current Visit: Yes Status: Acute Plan: RLE cellulites with Osteomyelitis 2.2 to Diabetic Fool ulcer -Podiatry Consulted. Appreciated Reccs -Currently on IV vanc and cefepime. Will switch to Meropenem. -Pt will need to continue IV abx for 6 weeks total for osteomyelitis -Wound Culture + proteus pansensitive -PICC line placement today. -CM placement for IV abx and Wound care (2) PVD (peripheral vascular disease) Current Visit: Yes Status: Chronic (3) Diabetes mellitus Current Visit: Yes Status: Chronic Plan: ISS and accu Check Qualifiers: Diabetes mellitus type: type 2 Diabetes mellitus long term care social worker insulin use: without residential use Diabetes mellitus complication status: with skin complications Diabetes mellitus complication detail: with foot ulcer Qualified Code(s): E11.621 - Type 2 diabetes mellitus with foot ulcer; L97.509 - Non-pressure chronic ulcer of other part of unspecified foot with unspecified severity (4) Dyslipidemia Current Visit: Yes Status: Chronic (5) HTN (hypertension) Current Visit: Yes Status: Chronic Qualifiers: Hypertension type: essential hypertension Qualified Code(s): I10 - Essential (primary) hypertension (6) Tobacco abuse Current Visit: Yes Status: Chronic - Plan Pending clinical Improvement at this time. Will continue with IV abx. Discharge Plan: Home Plan to discharge in: Greater than 2 days - Code Status/Comfort Care Code Status Assessed: Yes Critical Care: No
[2018-07-22] MEDS ORDERED: Meropenem 1000 MG/VIAL IV SCH (17:00)
[2018-07-22] MEDS: ENOXAPARIN 40 MG/0.4 ML SQ SCH (17:10)
[2018-07-22] MEDS: Meropenem 1,000 MG in NA CHLORIDE 0.9% 100 ML IV SCH (17:10)
[2018-07-22] MEDS: ATORVASTATIN 20 MG TAB PO SCH (20:33)
[2018-07-22] MEDS: NPH (HUMAN) 100 UNITS/ML INSULIN SQ SCH (20:34)
[2018-07-23] MEDS: Meropenem 1,000 MG in NA CHLORIDE 0.9% 100 ML IV SCH ×3 (01:33→10:12)
[2018-07-23 05:12] LABS: Absolute Monocytes 0.6 K/uL (0.1-1.3); Absolute Neutrophil 4.1 K/uL (1.8-8.0); Eosinophils % 0.9 % (0-4.4); Hematocrit 39.6 % (39.6-49.0); Lymphocytes % 29.3 % (15.3-44.8); MPV 7.7 fL (7.6-11.3); Monocytes % 8.9 % (3.3-12.3); RBC Red Blood Cell Count 4.33 M/uL (4.33-5.43)
[2018-07-23 05:22] LABS: BUN Blood Urea Nitrogen 12 mg/dL (7-18); Bicarbonate 29 mmol/L (21-32); Glucose Level 104 mg/dL (74-106); Magnesium 2.1 mg/dL (1.8-2.4); Potassium 4.2 mmol/L (3.5-5.1); Sodium Level 139 mmol/L (136-145)
[2018-07-23] MEDS: INSULIN -REGULAR HUMAN 50 UNIT/0.5 ML ML SQ SCH ×4 (07:30→22:46)
[2018-07-23] MEDS: NICOTINE 21 MG/PAT TD SCH (10:09)
[2018-07-23] MEDS: ASPIRIN EC 81 MG TAB PO SCH (10:11)
[2018-07-23] MEDS: NIFEDIPINE XL 90 MG TABLET PO SCH (10:11)
[2018-07-23] MEDS: TRAMADOL HCL 50 MG TAB PO PRN ×2 (10:11→22:55)
[2018-07-23] MEDS: VALSARTAN 80 MG TAB PO SCH (10:11)
[2018-07-23] MEDS: GABAPENTIN 300 MG CAP PO SCH ×3 (10:12→22:44)
[2018-07-23] MEDS: CLOPIDOGREL 75 MG TABLET PO SCH (10:12)
[2018-07-23] MEDS: EZETIMIBE 10 MG TAB PO SCH (10:12)
--- NOTE | 2018-07-23 11:27 | EKG ---
Test Date: 2018-07-19 Test Time: 16:25:21 Elderly Caregiver: MAGGIE MEASUREMENT RESULTS: Intervals: Rate: 103 [place]: 178 QRSD: 100 QT: 378 QTc: 495 [place]: P: 20 [place]: 178 QRS: 45 T: 46 INTERPRETIVE STATEMENTS: Sinus tachycardia Otherwise normal ECG No previous ECG available for comparison Electronically Signed On 07-19-18 18:21:08 CDT by Jose Guo
--- NOTE | 2018-07-23 12:52 | RAD REPORT ---
EXAM DESCRIPTION: RAD - Chest Single View - 07/23/2018 12:40 pm CLINICAL HISTORY: Picc line placement COMPARISON: Chest Single View dated 07/19/2018 FINDINGS: Portable chest was obtained following placement of a right upper extremity PICC line. The catheter tip projects over the SVC..
--- NOTE | 2018-07-23 12:56 | P.CNS ---
Date of Consult: 07/23/18 Primary Care Provider: Dr. Fernandes([place]); Podiatry-Dr. Field Chief Complaint: diabetic foot ulcer infection Allergies No Known Allergies Allergy (Verified 07/19/18 23:42) Home Medications: Aspirin [Aspir-Low] 1 tab PO DAILY 07/19/18 Atorvastatin Calcium 1 tab PO DAILY 07/19/18 Clopidogrel Bisulfate [Plavix*] 1 tab PO DAILY 07/19/18 Ezetimibe 1 tab PO DAILY 07/19/18 Gabapentin 1 tab PO BID 07/19/18 Glipizide/Metformin HCl [Glipizide-Metformin 2.5-500 mg] 1 each PO 0630 Insulin NPH Human [Novolin N (Humulin N)*] 20 units SQ BEDTIME 07/19/18 Nifedipine [Nifedipine ER] 1 tab PO DAILY 07/19/18 Olmesartan Medoxomil [Benicar] 1 tab PO DAILY 07/19/18 Tramadol HCl [Ultram] 1 tab PO DAILY 07/19/18 Pioglitazone [Actos] 15 mg PO DAILY 07/20/18 - Past Medical/Surgical History Diabetic: Yes -: Diabetes mellitus II -: HTN -: dyslipidemia -: left BKA -: 2 toes on R foot, amputation - Social History Alcohol use: Yes CD- Drugs: No Caffeine use: Yes Place of Residence: Home Review of Systems 10-point ROS is otherwise unremarkable Physical Examination Temp Pulse Resp BP Pulse Ox 97.6 F 86 16 142/92 H 98 07/23/18 12:00 07/23/18 12:00 07/23/18 12:00 07/23/18 12:00 07/23/18 12:00 General: Alert, In no apparent distress, Oriented x3 Cardiovascular: Normal pulses, Edema Capillary refill: <2 Seconds Musculoskeletal: No clubbing, No swelling, No contractures, No erythema, No tenderness, No warmth Integumentary: Diabetic ulcer (ulceration plantar right forefoot and plantar proximal lateral foot with granular base. No purulence. distal wound probes to bone. No cellulitis or streaking noted.) Neurological: Abnormal sensation - Problems (1) Diabetic foot ulcer Current Visit: Yes Status: Acute Qualifiers: Diabetic foot ulcer location: midfoot Diabetes mellitus type: type 2 Laterality: right Non-pressure ulcer stage: with necrosis of muscle Qualified Code(s): E11.621 - Type 2 diabetes mellitus with foot ulcer; L97.413 - Non-pressure chronic ulcer of right heel and midfoot with necrosis of muscle Conclusions/Impression: 1. I agree with ad terminal makeup operator iv antibiotics in ltac/snf setting 2. Yara to the wound q48h 3. Patient to reduce weightbearing to right foot 4. Patient to follow up in wound care in one week
--- NOTE | 2018-07-23 14:59 | P.PN ---
Subjective Date of Service: 07/23/18 Primary Care Provider: Dr. Fernandes([place]); Podiatry-Dr. Field Chief Complaint: diabetic foot ulcer infection Patient seen and examined at bedside with RN. Chart reviewed. Denies having fever, Chills, SOB and CP. MRI of the foot + for osteomyelitis. PICC line placed. Pending Placement now Review of Systems 10-point ROS is otherwise unremarkable Physical Examination - Vital Signs Temperature: 97.6 F Blood Pressure: 142/92 Pulse: 86 Respirations: 16 Pulse Ox (%): 98 - Physical Exam General: Alert, In no apparent distress HEENT: Atraumatic, PERRLA, EOMI Neck: Supple, JVD not distended Respiratory: Clear to auscultation bilaterally, Normal air movement Cardiovascular: Regular rate/rhythm, Normal S1 S2 Gastrointestinal: Normal bowel sounds, No tenderness Integumentary: Skin breakdown Neurological: Normal speech, Normal tone, Normal affect Lymphatics: No axilla or inguinal lymphadenopathy - Studies Medications List Reviewed: Yes Assessment And Plan - Current Problems (Diagnosis) (1) Osteomyelitis of right lower extremity Current Visit: Yes Status: Acute Plan: RLE cellulites with Osteomyelitis 2.2 to Diabetic Fool ulcer -Podiatry Consulted. Appreciated Reccs -Now on Meropenem. Will need it for 6 weeks. -Pt will need to continue IV abx for 6 weeks total for osteomyelitis -Wound Culture + proteus pansensitive -PICC line placed -CM placement for IV abx and Wound care (2) PVD (peripheral vascular disease) Current Visit: Yes Status: Chronic (3) Diabetes mellitus Current Visit: Yes Status: Chronic Plan: ISS and accu Check Qualifiers: Diabetes mellitus type: type 2 Diabetes mellitus nursing home insulin use: without nursing home use Diabetes mellitus complication status: with skin complications Diabetes mellitus complication detail: with foot ulcer Qualified Code(s): E11.621 - Type 2 diabetes mellitus with foot ulcer; L97.509 - Non-pressure chronic ulcer of other part of unspecified foot with unspecified severity (4) Dyslipidemia Current Visit: Yes Status: Chronic (5) HTN (hypertension) Current Visit: Yes Status: Chronic Qualifiers: Hypertension type: essential hypertension Qualified Code(s): I10 - Essential (primary) hypertension (6) Tobacco abuse Current Visit: Yes Status: Chronic - Plan Pending clinical Improvement at this time. Will continue with IV abx. Discharge Plan: Other Plan to discharge in: Greater than 2 days - Code Status/Comfort Care Code Status Assessed: Yes Critical Care: No
[2018-07-23] MEDS: ENOXAPARIN 40 MG/0.4 ML SQ SCH (17:00)
[2018-07-23] MEDS: ATORVASTATIN 20 MG TAB PO SCH (22:44)
[2018-07-23] MEDS: NPH (HUMAN) 100 UNITS/ML INSULIN SQ SCH (22:45)
[2018-07-24] MEDS: Meropenem 1,000 MG in NA CHLORIDE 0.9% 100 ML IV SCH ×3 (00:53→18:38)
[2018-07-24] MEDS: INSULIN -REGULAR HUMAN 50 UNIT/0.5 ML ML SQ SCH ×5 (07:30→20:56)
[2018-07-24] MEDS: GABAPENTIN 300 MG CAP PO SCH ×3 (09:37→20:34)
[2018-07-24] MEDS: TRAMADOL HCL 50 MG TAB PO PRN ×2 (09:37→20:34)
[2018-07-24] MEDS: VALSARTAN 80 MG TAB PO SCH (09:37)
[2018-07-24] MEDS: EZETIMIBE 10 MG TAB PO SCH (09:38)
[2018-07-24] MEDS: NICOTINE 21 MG/PAT TD SCH (09:38)
[2018-07-24] MEDS: NIFEDIPINE XL 90 MG TABLET PO SCH (09:39)
[2018-07-24] MEDS: ASPIRIN EC 81 MG TAB PO SCH (09:39)
[2018-07-24] MEDS: CLOPIDOGREL 75 MG TABLET PO SCH (09:39)
--- NOTE | 2018-07-24 17:10 | P.DS ---
Admission Date: 07/19/18 Discharge Date: 07/24/18 Primary Care Provider: Dr. Fernandes([place]); Podiatry-Dr. Field Reason for Admission: diabetic foot ulcer infection - Problems (1) Osteomyelitis of right lower extremity Current Visit: Yes Status: Acute (2) PVD (peripheral vascular disease) Current Visit: Yes Status: Chronic (3) Diabetes mellitus Current Visit: Yes Status: Chronic Qualifiers: Diabetes mellitus type: type 2 Diabetes mellitus snf insulin use: without termination clerk use Diabetes mellitus complication status: with skin complications Diabetes mellitus complication detail: with foot ulcer Qualified Code(s): E11.621 - Type 2 diabetes mellitus with foot ulcer; L97.509 - Non-pressure chronic ulcer of other part of unspecified foot with unspecified severity (4) Dyslipidemia Current Visit: Yes Status: Chronic (5) HTN (hypertension) Current Visit: Yes Status: Chronic Qualifiers: Hypertension type: essential hypertension Qualified Code(s): I10 - Essential (primary) hypertension (6) Tobacco abuse Current Visit: Yes Status: Chronic Brief History of Present Illness: Mr Alegre is a 53 years old male with history of DM II, HTN, dyslipidemia, tobacco abuse, left BKA, partial right foot amputation, who has 2 chronic diabetic foot ulcers on the bottom of his right foot, followed up by Dr Field every 2 weeks. However, for the last month, he was not able to see Dr Field due to transportations issues. About 1 week ago, he noticed that his both ulcers, expanded and start having yellowish secretion. His foot is significant more swollen than before. He denied pain, fever or chills. Lab work in ER shows normal WBC count with normal Lactate and procalcitonin. XR foot shows significant soft tissue swelling with no definite signs of osteomyelitis. The patient was also complaining of back pain, which is chronic. CT lumbar spine shows multiple vertebral level with DJD at different levels with borderline central canal stenosis at L2-3. Hospital Course: Overall during the hospital stay patient may stable Patient was initially admitted to the hospital for right lower leg cellulitis. Podiatry was consulted who saw the patient here in the hospital and recommended that we start the patient on broad-spectrum antibiotics. Patient was also taken down for incision drainage and clean out for the wound. MRI of the foot was also done to rule out osteomyelitis. Wound cultures were positive for Proteus which was sensitive to oral medication however MRI of the bone was positive for osteomyelitis thus the decision was made to treat the patient for osteomyelitis for total 6 weeks with IV meropenem. At that time patient was referred over to a correction facility for long-term IV antibiotics. Patient was accepted at [facility] and thus was discharged there for further care. Patient will be followed up with podiatry in about 1-2 days post discharge. Vital Signs/Physical Exam: Temp Pulse Resp BP Pulse Ox 97.3 F 94 H 16 140/88 98 07/24/18 12:00 07/24/18 12:00 07/24/18 12:00 07/24/18 12:00 07/24/18 12:00 General: Alert, In no apparent distress HEENT: Atraumatic, PERRLA, EOMI Neck: Supple, JVD not distended Respiratory: Clear to auscultation bilaterally, Normal air movement Cardiovascular: Regular rate/rhythm, Normal S1 S2 Gastrointestinal: Normal bowel sounds, No tenderness Musculoskeletal: No tenderness Integumentary: No rashes, Erythema, Warmth, Cyanosis Neurological: Normal speech, Normal tone, Normal affect Lymphatics: No axilla or inguinal lymphadenopathy Laboratory Data at Discharge: WBC 6.9 K/uL (4.3-10.9) D 07/23/18 04:36 Hgb 13.1 g/dL (13.6-17.9) L 07/23/18 04:36 Hct 39.6 % (39.6-49.0) 07/23/18 04:36 Plt Count 321 K/uL (152-406) 07/23/18 04:36 PT 12.1 SECONDS (9.5-12.5) 07/19/18 16:00 INR 1.03 07/19/18 16:00 APTT 47.1 SECONDS (24.3-36.9) H 07/19/18 16:00 Sodium 139 mmol/L (136-145) 07/23/18 04:36 Potassium 4.2 mmol/L (3.5-5.1) 07/23/18 04:36 BUN 12 mg/dL (7-18) 07/23/18 04:36 Creatinine 0.54 mg/dL (0.55-1.3) L 07/23/18 04:36 Glucose 104 mg/dL (74-106) 07/23/18 04:36 Magnesium 2.1 mg/dL (1.8-2.4) 07/23/18 04:36 Total Bilirubin 0.2 mg/dL (0.2-1.0) 07/19/18 16:00 AST 11 U/L (15-37) L 07/19/18 16:00 ALT 24 U/L (12-78) 07/19/18 16:00 Alkaline Phosphatase 90 U/L (45-117) 07/19/18 16:00 Triglycerides 71 mg/dL (<150) 07/21/18 04:35 Cholesterol 91 mg/dL (<200) 07/21/18 04:35 HDL Cholesterol 48 mg/dL (40-60) 07/21/18 04:35 Cholesterol/HDL Ratio 1.90 07/21/18 04:35 Home Medications: Aspirin [Aspir-Low] 1 tab PO DAILY 07/19/18 Atorvastatin Calcium 1 tab PO DAILY 07/19/18 Clopidogrel Bisulfate [Plavix*] 1 tab PO DAILY 07/19/18 Ezetimibe 1 tab PO DAILY 07/19/18 Gabapentin 1 tab PO BID 07/19/18 Glipizide/Metformin HCl [Glipizide-Metformin 2.5-500 mg] 1 each PO 0630 Insulin NPH Human [Novolin N (Humulin N)*] 20 units SQ BEDTIME 07/19/18 Nifedipine [Nifedipine ER] 1 tab PO DAILY 07/19/18 Olmesartan Medoxomil [Benicar] 1 tab PO DAILY 07/19/18 Tramadol HCl [Ultram] 1 tab PO DAILY 07/19/18 Pioglitazone [Actos] 15 mg PO DAILY 07/20/18 Meropenem [Merrem] 1,000 mg IV Q8H 42 Days vial 07/24/18 New Medications: Meropenem [Merrem] 1,000 mg IV Q8H 42 Days vial
[2018-07-24] MEDS: ATORVASTATIN 20 MG TAB PO SCH (20:34)
[2018-07-24] MEDS: NPH (HUMAN) 100 UNITS/ML INSULIN SQ SCH (20:59)
== END 2018-07-24 21:53 | DRG 540 ==
LOC: ER 14:11 → ERHOLD 20:05 → 2ND 21:01
PROVIDERS: ADMIT Internal Medicine; ATTEND Family Medicine
PROC: 02HV33Z Insertion of Infusion Device into Superior Vena Cava, Percutaneous Approach (ICD-10-PCS; principal; 2018-07-22)
PROC: B548ZZA Ultrasonography of Superior Vena Cava, Guidance (ICD-10-PCS; 2018-07-22)
DX: M86.171 Other acute osteomyelitis, right ankle and foot (principal); L97.413 Non-pressure chronic ulcer of right heel and midfoot with necrosis of muscle; B96.4 Proteus (mirabilis) (morganii) as the cause of diseases classified elsewhere; E11.51 Type 2 diabetes mellitus with diabetic peripheral angiopathy without gangrene; E11.621 Type 2 diabetes mellitus with foot ulcer; Z79.84 Long term (current) use of oral hypoglycemic drugs; E78.5 Hyperlipidemia, unspecified; I10 Essential (primary) hypertension; F17.210 Nicotine dependence, cigarettes, uncomplicated; Z89.512 Acquired absence of left leg below knee; M48.061 Spinal stenosis, lumbar region without neurogenic claudication; M47.9 Spondylosis, unspecified; E11.610 Type 2 diabetes mellitus with diabetic neuropathic arthropathy; Z79.4 Long term (current) use of insulin; Z89.421 Acquired absence of other right toe(s)
CPT/HCPCS: 36415; 71045; 72131; 80048; 80061; 80076; 80202; 81003; 81015; 82550; 82962; 83036; 83605; 83735; 84145; 84439; 84443; 85025; 85610; 85652; 85730; 86140; 87040; 87070; 87077; 87086; 87088; 87186; 87205; 93005; 93925; 93971; 96361; 96365; 96366; 96375; 97116; 97162; 99285; J0692; J1650; J2405; J2543; J7030